=== PATIENT | male | born 1960 | race Caucasian/White ===

== ENCOUNTER 2017-07-10 17:18 | Inpatient (IN) | payer OTHER ==
[2017-07-10 18:39] LABS: ADD MAN DIFF? NO
[2017-07-10 18:44] LABS: WHITE BLOOD COUNT 7.8 10^3/ul (4.8-10.8)
[2017-07-10 18:44] LABS: BASOPHILS % 0.4 % (0.0-2.0); EOSINOPHILS # 0.1 10^3/ul (0.0-0.5); EOSINOPHILS % 1.4 % (0.0-7.0); HEMATOCRIT 34.4 % (42.0-52.0); HEMOGLOBIN 11.5 g/dl (14.0-18.0); LYMPHOCYTES # 2.2 10^3/ul (0.8-2.9); LYMPHOCYTES % 28.1 % (15.0-51.0); MEAN CORPUSCULAR HEMOGLOBIN 28.7 pg (29.0-33.0); MEAN CORPUSCULAR HGB CONC 33.4 g/dl (32.0-37.0); MEAN CORPUSCULAR VOLUME 85.8 fl (82.0-101.0); MEAN PLATELET VOLUME 9.8 fl (7.4-10.4); MONOCYTE # 0.7 10^3/ul (0.3-0.9); MONOCYTES % 9.3 % (0.0-11.0); NEUTROPHIL # 4.7 10^3/ul (1.6-7.5); NEUTROPHILS % 60.5 % (39.0-77.0); PLATELET COUNT 254 10^3/UL (140-415); RED BLOOD COUNT 4.01 10^6/ul (4.70-6.10); RED CELL DISTRIBUTION WIDTH 13.9 % (11.5-14.5)
[2017-07-10 19:00] LABS: ALANINE AMINOTRANSFERASE 37 IU/L (13-69); ALBUMIN 3.7 g/dl (3.3-4.9); ALBUMIN/GLOBULIN RATIO 1.19; ALKALINE PHOSPHATASE 88 IU/L (42-121); ANION GAP 10 (8-16); ASPARTATE AMINO TRANSFERASE 16 IU/L (15-46); BILIRUBIN,INDIRECT 0.4 mg/dl (0-1.1); BILIRUBIN,TOTAL 0.4 mg/dl (0.2-1.3); BLOOD UREA NITROGEN 18 mg/dl (7-20); CALCIUM 8.8 mg/dl (8.4-10.2); CARBON DIOXIDE 29 mmol/L (21-31); CHLORIDE 107 mmol/L (97-110); CREATININE 0.96 mg/dl (0.61-1.24); GLUCOSE 97 mg/dl (70-220); LIPASE 181 U/L (23-300); POTASSIUM 4.1 mmol/L (3.5-5.1); SODIUM 142 mmol/L (135-144); TOTAL PROTEIN 6.8 g/dl (6.1-8.1)
[2017-07-10] MEDS: ONDANSETRON 4 MG INJ IV (19:00)
[2017-07-10] MEDS: morphine 4 MG/ML VIAL IV (19:01)
[2017-07-10] MEDS: SOD CHLORIDE 0.9% 100 ML (20:33)
[2017-07-10] MEDS: IODIXANOL LOCM 100 ML BTL (20:33)
[2017-07-10] MEDS: LORAZEPAM 2 MG INJ IV ×2 (20:36→20:50)
[2017-07-10] MEDS ORDERED: ONDANSETRON 4 MG INJ IV (23:00)
[2017-07-10] MEDS ORDERED: ACETAMINOPHEN 325 MG TAB PO (23:00)
[2017-07-11] MEDS ORDERED: NACL 0.9% 3 ML SYG IV (02:00)
[2017-07-11] MEDS ORDERED: ONDANSETRON 4 MG TAB PO (02:00)
[2017-07-11] MEDS ORDERED: ACETAMINOPHEN 325 MG TAB PO (02:00)
[2017-07-11] MEDS: HYDROCODONE/APAP (5/325) TAB PO ×2 (02:25→20:23)
[2017-07-11] MEDS: FAMOTIDINE 20 MG TAB PO ×3 (02:25→21:44)
[2017-07-11] MEDS: SOD CHLORIDE 0.9% 1,000 ML IV (02:26)
[2017-07-11] MEDS: morphine 2 MG INJ IV (03:41)
[2017-07-11] MEDS ORDERED: GLUCOSE GEL 15 GRAM TUBE PO ×2 (05:00)
[2017-07-11] MEDS ORDERED: GLUCOSE GEL 15 GRAM TUBE BUCCAL (05:00)
[2017-07-11] MEDS ORDERED: DEXTROSE 50% 50 ML SYRINGE IV ×2 (05:00)
[2017-07-11] MEDS ORDERED: GLUCAGON 1 MG INJ IM (05:00)
[2017-07-11] MEDS: ACCU-CHEK XX ×4 (07:20→21:49)
[2017-07-11] MEDS: metFORMIN 500 MG TAB PO (08:53)
[2017-07-11] MEDS: ASPIRIN (EC) 81 MG TAB PO (08:54)
[2017-07-11] MEDS: DORZOLAMIDE/TIMOLOL/PF 0.2 ML DROPERETTE BOTH EYES ×2 (08:54→21:44)
[2017-07-11] MEDS: GABAPENTIN 300 MG CAP PO ×3 (08:55→21:44)
[2017-07-11] MEDS: HYDROCHLOROTHIAZIDE 25 MG TAB PO (08:55)
[2017-07-11 08:56] LABS: HEMOGLOBIN A1C 4.7 % (0-5.9)
[2017-07-11] MEDS: ENOXAPARIN 40 MG/0.4 ML SYG SC (08:58)
[2017-07-11 09:05] LABS: ANION GAP 12 (8-16); BLOOD UREA NITROGEN 18 mg/dl (7-20); CALCIUM 8.9 mg/dl (8.4-10.2); CARBON DIOXIDE 32 mmol/L (21-31); CHLORIDE 103 mmol/L (97-110); CREATININE 0.97 mg/dl (0.61-1.24); GLUCOSE 99 mg/dl (70-220); POTASSIUM 4.1 mmol/L (3.5-5.1); SODIUM 143 mmol/L (135-144)
[2017-07-11 09:06] LABS: ETHANOL < 10.0 mg/dl
[2017-07-11 09:26] LABS: FREE THYROXINE INDEX (Calc) 2.51 ug/ml (0.65-3.89); T3 UPTAKE 36.9 % (23.5-40.5); T4 (THYROXINE) 6.8 ug/dl (5.5-11.0)
[2017-07-11 10:29] LABS: AMMONIA 13 umol/l (9-30)
[2017-07-11 10:46] LABS: ADD UMIC NO; UR ASCORBIC ACID NEGATIVE (NEGATIVE); UR BILIRUBIN (Dip) NEGATIVE (NEGATIVE); UR BLOOD (Dip) NEGATIVE (NEGATIVE); UR CLARITY CLEAR (CLEAR); UR COLOR STRAW (YELLOW); UR GLUCOSE (Dip) NEGATIVE (NEGATIVE); UR KETONES (Dip) NEGATIVE (NEGATIVE); UR LEUKOCYTE ESTERASE (Dip) NEGATIVE Leu/ul (NEGATIVE); UR NITRITE (Dip) NEGATIVE (NEGATIVE); UR SPECIFIC GRAVITY (Dip) 1.024 (1.003-1.030); UR TOTAL PROTEIN (Dip) NEGATIVE (NEGATIVE); UR UROBILINOGEN (Dip) NEGATIVE (NEGATIVE)
[2017-07-11 10:58] LABS: AMPHETAMINE/METHAMPHETAMINE Negative (NEGATIVE); BARBITURATES Positive (NEGATIVE); BENZODIAZEPINES Negative (NEGATIVE); CANNABINOIDS Negative (NEGATIVE); COCAINE Negative (NEGATIVE); OPIATES Positive (NEGATIVE)
[2017-07-11] MEDS: DOCUSATE SODIUM 100 MG CAP PO (13:21)
[2017-07-11 13:42] LABS: FOLATE 18.7 ng/ml (2.8-20.0)
[2017-07-11] MEDS: RISPERIDONE 0.25 MG TAB PO ×2 (17:22→19:30)
[2017-07-11] MEDS: DONEPEZIL 5 MG TAB PO (21:44)
[2017-07-11] MEDS: AMITRIPTYLINE 25 MG TAB PO (22:50)
[2017-07-12] MEDS ORDERED: IBUPROFEN 400 MG TAB PO (09:00)
[2017-07-12] MEDS: ACCU-CHEK XX ×4 (09:00→20:31)
[2017-07-12] MEDS: DORZOLAMIDE/TIMOLOL/PF 0.2 ML DROPERETTE BOTH EYES ×2 (09:18→20:28)
[2017-07-12] MEDS: FAMOTIDINE 20 MG TAB PO ×2 (09:19→20:29)
[2017-07-12] MEDS: ASPIRIN (EC) 81 MG TAB PO (09:19)
[2017-07-12] MEDS: HYDROCODONE/APAP (5/325) TAB PO ×3 (09:19→20:30)
[2017-07-12] MEDS: GABAPENTIN 300 MG CAP PO ×3 (09:19→20:29)
[2017-07-12] MEDS: RISPERIDONE 0.25 MG TAB PO ×2 (09:19→20:30)
[2017-07-12] MEDS: ENOXAPARIN 40 MG/0.4 ML SYG SC (09:20)
[2017-07-12] MEDS: HYDROCHLOROTHIAZIDE 25 MG TAB PO (09:25)
[2017-07-12] MEDS: morphine LIQ (10 MG/5 ML) CUP PO ×2 (12:24→19:05)
[2017-07-12] MEDS: COLCHICINE 0.6 MG TAB PO (14:57)
[2017-07-12] MEDS: DIVALPROEX SPRINKLE 125 MG CAP PO ×2 (16:21→20:29)
[2017-07-12] MEDS: AMITRIPTYLINE 25 MG TAB PO (20:29)
[2017-07-12] MEDS: DONEPEZIL 5 MG TAB PO (20:29)
[2017-07-13] MEDS: morphine LIQ (10 MG/5 ML) CUP PO ×6 (00:32→20:14)
[2017-07-13] MEDS: ACCU-CHEK XX (07:20)
[2017-07-13] MEDS: DORZOLAMIDE/TIMOLOL/PF 0.2 ML DROPERETTE BOTH EYES ×2 (08:32→20:12)
[2017-07-13] MEDS: ASPIRIN (EC) 81 MG TAB PO (08:33)
[2017-07-13] MEDS: RISPERIDONE 0.25 MG TAB PO ×2 (08:33→20:13)
[2017-07-13] MEDS: DIVALPROEX SPRINKLE 125 MG CAP PO ×2 (08:33→20:12)
[2017-07-13] MEDS: GABAPENTIN 300 MG CAP PO ×3 (08:35→20:13)
[2017-07-13] MEDS: HYDROCHLOROTHIAZIDE 25 MG TAB PO (08:36)
[2017-07-13] MEDS: COLCHICINE 0.6 MG TAB PO (08:36)
[2017-07-13] MEDS: FAMOTIDINE 20 MG TAB PO ×2 (08:36→20:13)
[2017-07-13] MEDS: ENOXAPARIN 40 MG/0.4 ML SYG SC (08:38)
[2017-07-13] MEDS: SENNA TAB PO ×2 (12:22→20:13)
[2017-07-13] MEDS: DOCUSATE SODIUM 100 MG CAP PO ×2 (12:23→20:12)
[2017-07-13] MEDS: HYDROCODONE/APAP (5/325) TAB PO (16:38)
[2017-07-13] MEDS: DONEPEZIL 5 MG TAB PO (20:12)
[2017-07-13] MEDS: AMITRIPTYLINE 25 MG TAB PO (20:13)
[2017-07-14] MEDS: morphine LIQ (10 MG/5 ML) CUP PO (00:28)
[2017-07-14] MEDS ORDERED: ACCU-CHEK XX (09:00)
== END 2017-07-14 01:00 | DRG 884 ==
LOC: MS1 22:52 → E/R 17:18
DX: F01.51 Vascular dementia, unspecified severity, with behavioral disturbance (principal); I69.954 Hemiplegia and hemiparesis following unspecified cerebrovascular disease affecting left non-dominant side; E11.9 Type 2 diabetes mellitus without complications; I10 Essential (primary) hypertension; F17.200 Nicotine dependence, unspecified, uncomplicated; G62.9 Polyneuropathy, unspecified; R10.11 Right upper quadrant pain
CPT/HCPCS: 36415; 70450; 74177; 76705; 80048; 80053; 80307; 81003; 82140; 82607; 82746; 82962; 83036; 83605; 83690; 84436; 84479; 85025; 96374; 96375; 99285-25

== ENCOUNTER 2017-08-02 18:03 | Inpatient (IN) | payer OTHER ==
[2017-08-02 18:59] LABS: ADD MAN DIFF? NO
[2017-08-02 19:03] LABS: WHITE BLOOD COUNT 8.4 10^3/ul (4.8-10.8)
[2017-08-02 19:03] LABS: BASOPHILS % 0.4 % (0.0-2.0); EOSINOPHILS # 0.1 10^3/ul (0.0-0.5); EOSINOPHILS % 1.6 % (0.0-7.0); HEMATOCRIT 42.2 % (42.0-52.0); HEMOGLOBIN 14.2 g/dl (14.0-18.0); LYMPHOCYTES # 2.1 10^3/ul (0.8-2.9); LYMPHOCYTES % 25.6 % (15.0-51.0); MEAN CORPUSCULAR HEMOGLOBIN 28.7 pg (29.0-33.0); MEAN CORPUSCULAR HGB CONC 33.6 g/dl (32.0-37.0); MEAN CORPUSCULAR VOLUME 85.3 fl (82.0-101.0); MEAN PLATELET VOLUME 10.2 fl (7.4-10.4); MONOCYTE # 0.8 10^3/ul (0.3-0.9); MONOCYTES % 9.8 % (0.0-11.0); NEUTROPHIL # 5.2 10^3/ul (1.6-7.5); NEUTROPHILS % 62.1 % (39.0-77.0); PLATELET COUNT 313 10^3/UL (140-415); RED BLOOD COUNT 4.95 10^6/ul (4.70-6.10); RED CELL DISTRIBUTION WIDTH 14.3 % (11.5-14.5)
[2017-08-02] MEDS: NALOXONE (0.4 MG/ML) INJ IV (19:22)
[2017-08-02] MEDS: SOD CHLORIDE 0.9% 500 ML IV (19:22)
[2017-08-02 19:24] LABS: ALANINE AMINOTRANSFERASE 36 IU/L (13-69); ALBUMIN 4.3 g/dl (3.3-4.9); ALBUMIN/GLOBULIN RATIO 1.13; ALKALINE PHOSPHATASE 103 IU/L (42-121); ANION GAP 18 (8-16); ASPARTATE AMINO TRANSFERASE 22 IU/L (15-46); BILIRUBIN,INDIRECT 0.5 mg/dl (0-1.1); BILIRUBIN,TOTAL 0.5 mg/dl (0.2-1.3); BLOOD UREA NITROGEN 34 mg/dl (7-20); CALCIUM 9.7 mg/dl (8.4-10.2); CARBON DIOXIDE 25 mmol/L (21-31); CHLORIDE 102 mmol/L (97-110); CREATININE 1.17 mg/dl (0.61-1.24); GLUCOSE 155 mg/dl (70-220); POTASSIUM 4.7 mmol/L (3.5-5.1); SODIUM 140 mmol/L (135-144); TOTAL PROTEIN 8.1 g/dl (6.1-8.1)
[2017-08-02] MEDS: FLUMAZENIL 0.5 MG INJ IV (20:12)
[2017-08-02 23:33] LABS: AADO2 Arterial 128.9 mmHg (7.0-24.0); Allen Test ACCEPTAB; Arterial Base Excess 1.6 mmol/L (-3.0-3); Arterial Blood Gas Oxygen Sat 87.7 mmHG (95.0-98.0); Arterial COHb 0.7 % (0.0-3.0); Arterial Fraction of Oxyhgb 86.9 % (93.0-99.0); Arterial HCO3 26.6 mmol/L (22.0-26.0); Arterial MetHb 0.2 % (0.0-1.5); Arterial Total Hemglobin 14.6 g/dl (12.0-18.0); Arterial pCO2 43.3 mmhg (35-45); MODE NASAL CANNULA; Site Right Radial
[2017-08-03] MEDS: SOD CHLORIDE 0.9% 1,000 ML IV ×3 (00:07→13:00)
[2017-08-03] MEDS ORDERED: ONDANSETRON 4 MG INJ IV ×2 (00:30→04:00)
[2017-08-03] MEDS ORDERED: ACETAMINOPHEN 325 MG TAB PO (00:30)
[2017-08-03] MEDS ORDERED: DOCUSATE SODIUM 100 MG CAP PO (04:00)
[2017-08-03] MEDS ORDERED: ACETAMINOPHEN 650 MG SUPP PR (04:00)
[2017-08-03] MEDS ORDERED: IPRATROPIUM (NEB) 0.5 MG/2.5 ML AMP NEB (04:00)
[2017-08-03] MEDS ORDERED: BISACODYL 10 MG SUPP PR (04:00)
[2017-08-03] MEDS ORDERED: MAGNESIUM HYDROXIDE 30ML CUP PO (04:00)
[2017-08-03 05:06] LABS: ADD MAN DIFF? NO
[2017-08-03 05:08] LABS: WHITE BLOOD COUNT 17.7 10^3/ul (4.8-10.8)
[2017-08-03 05:08] LABS: BASOPHILS % 0.2 % (0.0-2.0); EOSINOPHILS % 0.1 % (0.0-7.0); HEMATOCRIT 42.9 % (42.0-52.0); HEMOGLOBIN 14.4 g/dl (14.0-18.0); LYMPHOCYTES # 1.9 10^3/ul (0.8-2.9); LYMPHOCYTES % 10.6 % (15.0-51.0); MEAN CORPUSCULAR HEMOGLOBIN 28.6 pg (29.0-33.0); MEAN CORPUSCULAR HGB CONC 33.6 g/dl (32.0-37.0); MEAN CORPUSCULAR VOLUME 85.1 fl (82.0-101.0); MEAN PLATELET VOLUME 10.6 fl (7.4-10.4); MONOCYTE # 1.4 10^3/ul (0.3-0.9); MONOCYTES % 7.8 % (0.0-11.0); NEUTROPHIL # 14.3 10^3/ul (1.6-7.5); NEUTROPHILS % 80.9 % (39.0-77.0); PLATELET COUNT 308 10^3/UL (140-415); RED BLOOD COUNT 5.04 10^6/ul (4.70-6.10); RED CELL DISTRIBUTION WIDTH 14.3 % (11.5-14.5)
[2017-08-03] MEDS: IPRATROPIUM (NEB) 0.5 MG/2.5 ML AMP NEB ×2 (05:27→21:19)
[2017-08-03 05:29] LABS: ALANINE AMINOTRANSFERASE 32 IU/L (13-69); ALBUMIN 4.4 g/dl (3.3-4.9); ALBUMIN/GLOBULIN RATIO 1.33; ALKALINE PHOSPHATASE 101 IU/L (42-121); ANION GAP 20 (8-16); ASPARTATE AMINO TRANSFERASE 23 IU/L (15-46); BILIRUBIN,INDIRECT 0.6 mg/dl (0-1.1); BILIRUBIN,TOTAL 0.6 mg/dl (0.2-1.3); BLOOD UREA NITROGEN 40 mg/dl (7-20); CALCIUM 9.6 mg/dl (8.4-10.2); CARBON DIOXIDE 26 mmol/L (21-31); CHLORIDE 100 mmol/L (97-110); GLUCOSE 159 mg/dl (70-220); MAGNESIUM 1.8 mg/dl (1.7-2.5); POTASSIUM 4.6 mmol/L (3.5-5.1); SODIUM 141 mmol/L (135-144); TOTAL PROTEIN 7.7 g/dl (6.1-8.1)
[2017-08-03 05:44] LABS: AMMONIA 11 umol/l (9-30); FREE T4 (FREE THYROXINE) 0.96 ng/dl (0.64-1.79)
[2017-08-03] MEDS: PANTOPRAZOLE 40 MG INJ IV (06:14)
[2017-08-03] MEDS: HEPARIN 5,000 UNIT/0.5 ML VIAL SC (06:44)
[2017-08-03] MEDS ORDERED: SUCCINYLCHOLINE CHLORIDE 100 MG/5 ML SYG IV (07:00)
[2017-08-03] MEDS ORDERED: ETOMIDATE 20 MG INJ (07:00)
[2017-08-03] MEDS: LABETALOL HCL 20MG INJ IV (07:17)
[2017-08-03] MEDS: SUCCINYLCHOLINE CHLORIDE 100 MG/5 ML SYG IV (08:14)
[2017-08-03] MEDS: ETOMIDATE 20 MG INJ IV (08:14)
[2017-08-03] MEDS: PROPOFOL 100 ML IV ×2 (08:26→18:00)
[2017-08-03 08:33] LABS: AADO2 Arterial 140.4 mmHg (7.0-24.0); Allen Test ACCEPTAB; Arterial Base Excess -1.1 mmol/L (-3.0-3); Arterial Blood Gas Oxygen Sat 99.6 mmHG (95.0-98.0); Arterial COHb 0.1 % (0.0-3.0); Arterial Fraction of Oxyhgb 99.1 % (93.0-99.0); Arterial HCO3 24.4 mmol/L (22.0-26.0); Arterial MetHb 0.4 % (0.0-1.5); Arterial Total Hemglobin 15.6 g/dl (12.0-18.0); Arterial pCO2 43.8 mmhg (35-45); MODE VENT - AC; Site Right Radial
[2017-08-03] MEDS: DIVALPROEX SPRINKLE 125 MG CAP PO ×2 (09:12→22:59)
[2017-08-03] MEDS ORDERED: VANCOMYCIN IV PER PHARMACY XX (10:00)
[2017-08-03] MEDS: ACYCLOVIR IVPB ×2 (10:08→18:00)
[2017-08-03] MEDS: DEXTROSE 5% IVPB ×2 (10:08→18:00)
[2017-08-03] MEDS ORDERED: GLUCOSE GEL 15 GRAM TUBE BUCCAL (11:00)
[2017-08-03] MEDS ORDERED: GLUCAGON 1 MG INJ IM (11:00)
[2017-08-03] MEDS ORDERED: DEXTROSE 50% 50 ML SYRINGE IV ×2 (11:00)
[2017-08-03] MEDS ORDERED: GLUCOSE GEL 15 GRAM TUBE PO ×2 (11:00)
[2017-08-03] MEDS: VANCOMYCIN 2 GM in SOD CHLORIDE 0.9% 500 ML IVPB (12:51)
[2017-08-03] MEDS: INSULIN ASPART [NOVOLOG] 3 ML PEN SC ×3 (14:01→21:00)
[2017-08-03] MEDS: CEFEPIME 2GM/50 ML (PMX) 50 ML IVPB ×2 (14:05→22:59)
[2017-08-03 21:24] LABS: ADD UMIC YES; UR ASCORBIC ACID NEGATIVE (NEGATIVE); UR BACTERIA FEW /HPF (NONE SEEN); UR BILIRUBIN (Dip) NEGATIVE (NEGATIVE); UR BLOOD (Dip) 1+ mg/dL (NEGATIVE); UR CLARITY CLEAR (CLEAR); UR COLOR YELLOW (YELLOW); UR GLUCOSE (Dip) NEGATIVE (NEGATIVE); UR KETONES (Dip) NEGATIVE (NEGATIVE); UR LEUKOCYTE ESTERASE (Dip) NEGATIVE Leu/ul (NEGATIVE); UR NITRITE (Dip) NEGATIVE (NEGATIVE); UR RBC 5 /HPF (0-5); UR SPECIFIC GRAVITY (Dip) 1.025 (1.003-1.030); UR TOTAL PROTEIN (Dip) 1+ mg/dl (NEGATIVE); UR UROBILINOGEN (Dip) NEGATIVE (NEGATIVE); UR WBC 1 /HPF (0-5)
[2017-08-03 22:17] LABS: AMPHETAMINE/METHAMPHETAMINE Negative (NEGATIVE); BARBITURATES Negative (NEGATIVE)
[2017-08-03 22:19] LABS: BENZODIAZEPINES Negative (NEGATIVE); CANNABINOIDS Negative (NEGATIVE); COCAINE Negative (NEGATIVE); OPIATES Positive (NEGATIVE)
[2017-08-03] MEDS ORDERED: IPRATROPIUM (HFA) 12.9 GM INHALER INH (22:30)
[2017-08-03] MEDS: VANCOMYCIN 1 GM in 250 ML IVPB (22:59)
[2017-08-04] MEDS: SOD CHLORIDE 0.9% 1,000 ML IV ×3 (00:40→19:56)
[2017-08-04] MEDS: PROPOFOL 100 ML IV ×2 (00:40→05:37)
[2017-08-04] MEDS ORDERED: ALBUTEROL HFA 8 GM INHALER INH (01:00)
[2017-08-04] MEDS ORDERED: IPRATROPIUM (HFA) 12.9 GM INHALER INH (01:00)
[2017-08-04] MEDS: INSULIN ASPART [NOVOLOG] 3 ML PEN SC ×6 (01:00→21:00)
[2017-08-04 01:34] LABS: ADD UMIC NO; UR ASCORBIC ACID NEGATIVE (NEGATIVE); UR BILIRUBIN (Dip) NEGATIVE (NEGATIVE); UR BLOOD (Dip) NEGATIVE (NEGATIVE); UR CLARITY SLIGHTLY CLOUDY (CLEAR); UR COLOR YELLOW (YELLOW); UR GLUCOSE (Dip) NEGATIVE (NEGATIVE); UR KETONES (Dip) NEGATIVE (NEGATIVE); UR LEUKOCYTE ESTERASE (Dip) NEGATIVE Leu/ul (NEGATIVE); UR MUCUS FEW /HPF (NONE SEEN); UR NITRITE (Dip) NEGATIVE (NEGATIVE); UR RBC 6 /HPF (0-5); UR SPECIFIC GRAVITY (Dip) 1.027 (1.003-1.030); UR TOTAL PROTEIN (Dip) NEGATIVE (NEGATIVE); UR UROBILINOGEN (Dip) NEGATIVE (NEGATIVE); UR WBC 2 /HPF (0-5)
[2017-08-04] MEDS: ACCU-CHEK XX (01:56)
[2017-08-04] MEDS: ACYCLOVIR IVPB (04:01)
[2017-08-04] MEDS: DEXTROSE 5% IVPB (04:01)
[2017-08-04 05:24] LABS: ADD MAN DIFF? NO
[2017-08-04 05:31] LABS: WHITE BLOOD COUNT 10.5 10^3/ul (4.8-10.8)
[2017-08-04 05:31] LABS: BASOPHILS % 0.3 % (0.0-2.0); EOSINOPHILS # 0.1 10^3/ul (0.0-0.5); EOSINOPHILS % 0.8 % (0.0-7.0); HEMATOCRIT 35.9 % (42.0-52.0); HEMOGLOBIN 12.4 g/dl (14.0-18.0); LYMPHOCYTES # 1.7 10^3/ul (0.8-2.9); LYMPHOCYTES % 16.3 % (15.0-51.0); MEAN CORPUSCULAR HEMOGLOBIN 29.7 pg (29.0-33.0); MEAN CORPUSCULAR HGB CONC 34.5 g/dl (32.0-37.0); MEAN CORPUSCULAR VOLUME 85.9 fl (82.0-101.0); MEAN PLATELET VOLUME 10.2 fl (7.4-10.4); MONOCYTES % 9.5 % (0.0-11.0); NEUTROPHIL # 7.6 10^3/ul (1.6-7.5); NEUTROPHILS % 72.7 % (39.0-77.0); PLATELET COUNT 214 10^3/UL (140-415); RED BLOOD COUNT 4.18 10^6/ul (4.70-6.10); RED CELL DISTRIBUTION WIDTH 14.6 % (11.5-14.5)
[2017-08-04] MEDS: CEFEPIME 2GM/50 ML (PMX) 50 ML IVPB ×3 (05:36→21:25)
[2017-08-04] MEDS: PANTOPRAZOLE 40 MG INJ IV (05:37)
[2017-08-04 05:56] LABS: ANION GAP 13 (8-16); BLOOD UREA NITROGEN 48 mg/dl (7-20); CALCIUM 8.3 mg/dl (8.4-10.2); CARBON DIOXIDE 27 mmol/L (21-31); CHLORIDE 104 mmol/L (97-110); CREATININE 1.28 mg/dl (0.61-1.24); GLUCOSE 143 mg/dl (70-220); POTASSIUM 4.1 mmol/L (3.5-5.1); SODIUM 140 mmol/L (135-144)
[2017-08-04 06:11] LABS: MAGNESIUM 1.9 mg/dl (1.7-2.5)
[2017-08-04] MEDS ORDERED: ASPIRIN (EC) 81 MG TAB PO (09:00)
[2017-08-04] MEDS: DIVALPROEX SPRINKLE 125 MG CAP PO ×2 (09:40→21:25)
[2017-08-04] MEDS: VANCOMYCIN 1 GM in 250 ML IVPB (10:46)
[2017-08-04] MEDS: ASPIRIN 81 MG TAB NGT (10:46)
[2017-08-04] MEDS: METOPROLOL 25 MG TAB PO ×2 (10:46→21:25)
[2017-08-04] MEDS ORDERED: IPRATROPIUM (NEB) 0.5 MG/2.5 ML AMP INH (19:00)
[2017-08-04] MEDS: morphine 2 MG INJ IV (21:25)
[2017-08-04] MEDS: IPRATROPIUM (NEB) 0.5 MG/2.5 ML AMP INH (21:40)
[2017-08-05] MEDS: INSULIN ASPART [NOVOLOG] 3 ML PEN SC (01:00)
[2017-08-05] MEDS: IPRATROPIUM (NEB) 0.5 MG/2.5 ML AMP INH (01:00)
[2017-08-05] MEDS: morphine 2 MG INJ IV (01:27)
[2017-08-05] MEDS: ACCU-CHEK XX (01:34)
== END 2017-08-05 02:55 | disposition short-term general hospital (02) | DRG 208 ==
LOC: E/R 18:03 → ICU 08-03 00:08
PROC: 5A1945Z Respiratory Ventilation, 24-96 Consecutive Hours (ICD-10-PCS; principal; 2017-08-03)
PROC: 0BH17EZ Insertion of Endotracheal Airway into Trachea, Via Natural or Artificial Opening (ICD-10-PCS; 2017-08-03)
DX: J96.00 Acute respiratory failure, unspecified whether with hypoxia or hypercapnia (principal); G93.40 Encephalopathy, unspecified; J69.0 Pneumonitis due to inhalation of food and vomit; I69.354 Hemiplegia and hemiparesis following cerebral infarction affecting left non-dominant side; F01.51 Vascular dementia, unspecified severity, with behavioral disturbance; Z68.41 Body mass index [BMI] 40.0-44.9, adult; E11.42 Type 2 diabetes mellitus with diabetic polyneuropathy; E66.01 Morbid (severe) obesity due to excess calories; J44.9 Chronic obstructive pulmonary disease, unspecified; E78.5 Hyperlipidemia, unspecified; G40.909 Epilepsy, unspecified, not intractable, without status epilepticus; I10 Essential (primary) hypertension; N48.1 Balanitis; N47.1 Phimosis; E86.0 Dehydration; Z79.4 Long term (current) use of insulin; Z79.82 Long term (current) use of aspirin; Z87.891 Personal history of nicotine dependence
CPT/HCPCS: 31500; 36415; 36600; 70450; 70551; 71045; 80048; 80053; 80307; 81001; 81003; 82140; 82803; 82962; 83036; 83735; 84100; 84439; 84443; 85025; 87081; 87086; 93005; 94002; 94003; 94640; 94660; 94664; 94770; 95819; 96365; 96372; 96375; 99285-25

== ENCOUNTER 2017-09-02 15:40 | Emergency (ER) | payer OTHER ==
[2017-09-02 15:58] LABS: ADD MAN DIFF? NO
[2017-09-02 16:01] LABS: BASOPHILS % 0.3 % (0.0-2.0); EOSINOPHILS # 0.2 10^3/ul (0.0-0.5); EOSINOPHILS % 1.7 % (0.0-7.0); HEMATOCRIT 32.4 % (42.0-52.0); HEMOGLOBIN 10.9 g/dl (14.0-18.0); LYMPHOCYTES % 21.9 % (15.0-51.0); MEAN CORPUSCULAR HGB CONC 33.6 g/dl (32.0-37.0); MEAN CORPUSCULAR VOLUME 86.2 fl (82.0-101.0); MEAN PLATELET VOLUME 9.6 fl (7.4-10.4); MONOCYTES % 10.6 % (0.0-11.0); NEUTROPHIL # 5.8 10^3/ul (1.6-7.5); NEUTROPHILS % 65.1 % (39.0-77.0); PLATELET COUNT 176 10^3/UL (140-415); RED BLOOD COUNT 3.76 10^6/ul (4.70-6.10); RED CELL DISTRIBUTION WIDTH 14.9 % (11.5-14.5)
[2017-09-02 16:19] LABS: ALANINE AMINOTRANSFERASE 14 IU/L (13-69); ALBUMIN 3.6 g/dl (3.3-4.9); ALBUMIN/GLOBULIN RATIO 1.16; ALKALINE PHOSPHATASE 53 IU/L (42-121); ANION GAP 12 (8-16); ASPARTATE AMINO TRANSFERASE 13 IU/L (15-46); BILIRUBIN,INDIRECT 0.7 mg/dl (0-1.1); BILIRUBIN,TOTAL 0.7 mg/dl (0.2-1.3); BLOOD UREA NITROGEN 30 mg/dl (7-20); CALCIUM 8.8 mg/dl (8.4-10.2); CARBON DIOXIDE 34 mmol/L (21-31); CHLORIDE 96 mmol/L (97-110); CREATININE 1.31 mg/dl (0.61-1.24); GLUCOSE 94 mg/dl (70-220); POTASSIUM 3.9 mmol/L (3.5-5.1); SODIUM 138 mmol/L (135-144); TOTAL PROTEIN 6.7 g/dl (6.1-8.1)
[2017-09-02 16:23] LABS: ACETAMINOPHEN < 10.0 ug/ml (10.0-30.0); ETHANOL < 10.0 mg/dl; SALICYLATE < 1.0 mg/dl (5.0-30.0)
[2017-09-02 16:30] LABS: TROPONIN-I < 0.010 ng/ml (0.000-0.120)
[2017-09-02] MEDS: ALBUTEROL/IPRATROPIUM (NEB) 3 ML AMP NEB (16:38)
[2017-09-02 18:19] LABS: ADD UMIC NO; UR ASCORBIC ACID NEGATIVE (NEGATIVE); UR BILIRUBIN (Dip) NEGATIVE (NEGATIVE); UR BLOOD (Dip) NEGATIVE (NEGATIVE); UR CLARITY CLEAR (CLEAR); UR COLOR YELLOW (YELLOW); UR GLUCOSE (Dip) NEGATIVE (NEGATIVE); UR KETONES (Dip) NEGATIVE (NEGATIVE); UR LEUKOCYTE ESTERASE (Dip) NEGATIVE Leu/ul (NEGATIVE); UR NITRITE (Dip) NEGATIVE (NEGATIVE); UR SPECIFIC GRAVITY (Dip) 1.013 (1.003-1.030); UR TOTAL PROTEIN (Dip) NEGATIVE (NEGATIVE); UR UROBILINOGEN (Dip) NEGATIVE (NEGATIVE)
[2017-09-02 19:01] LABS: AMPHETAMINE/METHAMPHETAMINE Negative (NEGATIVE); BARBITURATES Negative (NEGATIVE); BENZODIAZEPINES Negative (NEGATIVE); CANNABINOIDS Negative (NEGATIVE); COCAINE Negative (NEGATIVE); OPIATES Positive (NEGATIVE)
== END 2017-09-03 00:22 | disposition home or self-care (01) ==
LOC: E/R 09-03 00:22
DX: R41.82 Altered mental status, unspecified (principal); R06.02 Shortness of breath; J44.9 Chronic obstructive pulmonary disease, unspecified; E11.9 Type 2 diabetes mellitus without complications; Z79.82 Long term (current) use of aspirin; Z87.891 Personal history of nicotine dependence
CPT/HCPCS: 36415; 70450; 71045; 80053; 80307; 81003; 84484; 85025; 93005; 94664; 99285-25